=== PATIENT | female | born 2000 | race Caucasian/White ===

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

== ENCOUNTER 2019-07-25 07:59 | Emergency (ER) | payer BC, OTHER ==
[2019-07-25] MEDS ORDERED: Ketorolac 30 MG/ML SDV IVPUSH ONE (08:50)
[2019-07-25] MEDS ORDERED: Sodium Chloride 0.9% 1,000 ML IV ONE (08:50)
--- NOTE | 2019-07-25 08:57 | EDM.PDOC ---
ED HPI GENERAL MEDICAL PROBLEM - General Stated Complaint: ABD PAIN Time Seen by Provider: 07/25/19 08:30 Source of Information: Reports: Patient History Limitations: Reports: No Limitations - History of Present Illness INITIAL COMMENTS - FREE TEXT/NARRATIVE: patient is a pleasant 18-year-old female who presents this morning with concern for severe right-sided abdominal pain that started in her lower abdomen. She states it refers up to her upper abdomen and also she can feel it a little bit in her back. She had one episode similar prior but it was not nearly this severe. She has mild nausea, but no vomiting, and no fever. She does not have any urinary symptoms such as increased frequency or urgency. she did not take anything at home for the pain. She describes it as constant, with spasms that cause her to become worse. Last menstrual period just started this morning, she just stopped her control 2 days ago due to concern over moods. She has a history of protein C deficiency. She also has a history of chronic constipation, and there is an extensive family history of early cholelithiasis and also more distant family history of renal stones. She herself has never had either of these issues. R abdominal pain Pain Score (Numeric/FACES): 7 - Related Data Allergies Allergy/AdvReac Type Severity Reaction Status Date / Time No Known Allergies Allergy Verified 07/25/19 08:31 Home Meds: Home Meds Ibuprofen 600 mg PO Q8HR PRN 07/22/17 [History] Doxycycline [Vibramycin] 100 mg PO BID 14 Days #28 cap 07/25/19 [Rx] Past Medical History HEENT History: Reports: Allergic Rhinitis Gastrointestinal History: Reports: Chronic Constipation Psychiatric History: Reports: Anxiety Hematologic History: Reports: Other (See Below) Other Hematologic History: protein c deficiency - Past Surgical History HEENT Surgical History: Reports: Oral Surgery, Tonsillectomy Musculoskeletal Surgical History: Reports: Arthroscopic Knee, Shoulder Surgery Social & Family History - Family History GI: Reports: Cholelithiasis : Reports: Renal Calculus - Tobacco Use Smoking Status *Q: Current Every Day Smoker Tobacco Use Within Last Twelve Months: Vaping - Living Situation & Occupation Living situation: Reports: with Family Occupation: Student ED ROS GENERAL - Review of Systems Review Of Systems: ROS reveals no pertinent complaints other than HPI. ED EXAM, GENERAL - Physical Exam Exam: See Below Free Text/Narrative:: Gen.: Alert, smiling and laughing with family when I first enter the room. Head is atraumatic, pupils and equal and reactive, neck is supple and there is no cervical lymphadenopathy. Throat is without erythema and mucous members are moist. Lungs are clear throughout with no wheezes or crackles, heart is regular rate and rhythm. There is no costovertebral tenderness on either side. Peripheral pulses are +2 in the upper and lower extremities and she has no lower extremity edema. Skin is without lesions or rashes. She has equal strength [id number]. Abdominal exam shows normal bowel sounds, diffusely tender. No rebound or guarding. pelvic exam shows copious green vaginal discharge around the cervix and in the vaginal vault. No blood or clots. On bimanual exam she has cervical motion tenderness and some left-sided adnexal tenderness, but not on the right side. Course - Vital Signs Text/Narrative:: labs ordered. Vitals stable, will give toradol and IVF. Broad differential. Last Recorded V/S: Last Vital Signs Temp 36.7 C 07/25/19 12:15 Pulse 82 07/25/19 12:15 Resp 18 07/25/19 12:15 BP 122/70 07/25/19 12:15 Pulse Ox 100 07/25/19 12:15 - Orders/Labs/Meds Orders: Active Orders 24 hr Category Date Time Status CHLAMYDIA/GC AMPLIFICATION Routine Lab 07/25/19 11:00 Received CULTURE URINE [RM] Stat Lab 07/25/19 09:57 Received Phenazopyridine [Urinary Pain Relief] Med 07/25/19 09:00 Active 95 mg PO TIDPC cefTRIAXone [Rocephin] Med 07/25/19 11:30 Active 1 gm IVPUSH Q24H Medication Orders Ceftriaxone Sodium (Rocephin) 1 gm IVPUSH Q24H [facility] Last Admin: 07/25/19 11:31 Dose: 1 gm Phenazopyridine HCl (Urinary Pain Relief) 95 mg PO TIDPC [facility] Last Admin: 07/25/19 09:39 Dose: 95 mg Labs: Laboratory Tests 07/25/19 07/25/19 07/25/19 Range/Units 08:14 08:14 08:30 WBC 9.8 (4.5-12.0) X10-3/uL RBC 5.25 H (3.23-5.20) x10(6)uL Hgb 13.1 (11.5-15.5) g/dL Hct 41.4 (30.0-51.3) % MCV 78.8 L (80-96) fL MCH 24.9 L (27.7-33.6) pg MCHC 31.6 L (32.2-35.4) g/dL RDW 13.8 (11.5-15.5) % Plt Count 328 (125-369) X10(3)uL MPV 8.8 (7.4-10.4) fL Neut % (Auto) 70.4 (46-82) % Lymph % (Auto) 19.6 (13-37) % [place] % (Auto) 6.2 (4-12) % Eos % (Auto) 3 (1.0-5.0) % Baso % (Auto) 1 (0-2) % Neut # (Auto) 6.9 (1.6-8.3) # Lymph # (Auto) 1.9 (0.6-5.0) # [place] # (Auto) 0.6 (0.0-1.3) # Eos # (Auto) 0.3 (0.0-0.8) # Baso # (Auto) 0.1 (0.0-0.2) # Sodium (135-145) mmol/L Potassium (3.5-5.3) mmol/L Chloride (100-110) mmol/L Carbon Dioxide (21-32) mmol/L BUN (7-18) mg/dL Creatinine (0.55-1.02) mg/dL Est Cr Clr Drug Dosing mL/min Estimated GFR (MDRD) (>60) BUN/Creatinine Ratio (9-20) Glucose (80-116) mg/dL Calcium (8.2-10.1) mg/dL Total Bilirubin (0.1-1.2) mg/dL AST (5-25) IU/L ALT (12-36) U/L Alkaline Phosphatase (56-112) IU/L C-Reactive Protein (0.5-0.9) mg/dL Total Protein (6.0-8.0) g/dL Albumin (3.2-4.5) g/dL Globulin g/dL Albumin/Globulin Ratio Amylase (25-115) U/L Urine Color Yellow (YELLOW) Urine Appearance Slightly cloudy (CLEAR) Urine pH 5.0 (5.0-6.5) Ur Specific [place] 1.020 (1.010-1.025) Urine Protein Negative (NEGATIVE) mg/dL Urine Glucose (UA) Normal (NORMAL) mg/dL Urine Ketones Negative (NEGATIVE) mg/dL Urine Occult Blood Large H (NEGATIVE) Urine Nitrite Negative (NEGATIVE) Urine Bilirubin Negative (NEGATIVE) Urine Urobilinogen Normal (NEGATIVE) mg/dL Ur Leukocyte Esterase Moderate H (NEGATIVE) Urine RBC 10-20 H (0-5) Urine WBC 5-10 H (0-5) Ur Squamous Epith Cells Moderate H (NS,R,O) Ur Renal Epithelial Cell Few H (NS) Urine Bacteria Many H (NS) Hyaline Casts Few H (NS) Urine Mucus Few H (NS) Urine HCG, Qual Negative (NEGATIVE) 07/25/19 07/25/19 Range/Units 08:30 08:30 WBC (4.5-12.0) X10-3/uL RBC (3.23-5.20) x10(6)uL Hgb (11.5-15.5) g/dL Hct (30.0-51.3) % MCV (80-96) fL MCH (27.7-33.6) pg MCHC (32.2-35.4) g/dL RDW (11.5-15.5) % Plt Count (125-369) X10(3)uL MPV (7.4-10.4) fL Neut % (Auto) (46-82) % Lymph % (Auto) (13-37) % [place] % (Auto) (4-12) % Eos % (Auto) (1.0-5.0) % Baso % (Auto) (0-2) % Neut # (Auto) (1.6-8.3) # Lymph # (Auto) (0.6-5.0) # [place] # (Auto) (0.0-1.3) # Eos # (Auto) (0.0-0.8) # Baso # (Auto) (0.0-0.2) # Sodium 140 (135-145) mmol/L Potassium 4.3 (3.5-5.3) mmol/L Chloride 105 (100-110) mmol/L Carbon Dioxide 26 (21-32) mmol/L BUN 10 (7-18) mg/dL Creatinine 0.7 (0.55-1.02) mg/dL Est Cr Clr Drug Dosing 92.85 mL/min Estimated GFR (MDRD) > 60 (>60) BUN/Creatinine Ratio 14.3 (9-20) Glucose 94 (80-116) mg/dL Calcium 9.0 (8.2-10.1) mg/dL Total Bilirubin 0.3 (0.1-1.2) mg/dL AST 16 (5-25) IU/L ALT 18 (12-36) U/L Alkaline Phosphatase 72 (56-112) IU/L C-Reactive Protein < 0.2 L (0.5-0.9) mg/dL Total Protein 7.8 (6.0-8.0) g/dL Albumin 3.7 (3.2-4.5) g/dL Globulin 4.1 g/dL Albumin/Globulin Ratio 0.9 Amylase 40 (25-115) U/L Urine Color (YELLOW) Urine Appearance (CLEAR) Urine pH (5.0-6.5) Ur Specific [place] (1.010-1.025) Urine Protein (NEGATIVE) mg/dL Urine Glucose (UA) (NORMAL) mg/dL Urine Ketones (NEGATIVE) mg/dL Urine Occult Blood (NEGATIVE) Urine Nitrite (NEGATIVE) Urine Bilirubin (NEGATIVE) Urine Urobilinogen (NEGATIVE) mg/dL Ur Leukocyte Esterase (NEGATIVE) Urine RBC (0-5) Urine WBC (0-5) Ur Squamous Epith Cells (NS,R,O) Ur Renal Epithelial Cell (NS) Urine Bacteria (NS) Hyaline Casts (NS) Urine Mucus (NS) Urine HCG, Qual (NEGATIVE) Meds: Medications Generic Name Dose Route Start Last Admin Trade Name Freq PRN Reason Stop Dose Admin Ceftriaxone Sodium 1 gm 07/25/19 11:30 07/25/19 11:31 Rocephin IVPUSH 1 gm Q24H ALEAH Administration Phenazopyridine HCl 95 mg 07/25/19 09:00 07/25/19 09:39 Urinary Pain Relief PO 95 mg TIDPC ALEAH Administration Discontinued Medications Generic Name Dose Route Start Last Admin Trade Name Freq PRN Reason Stop Dose Admin Azithromycin 1,000 mg 07/25/19 11:45 09/18/19 11:36 Zithromax PO 07/25/19 11:46 1,000 mg ONETIME ONE Administration Sodium Chloride 1,000 mls @ 999 mls/hr 07/25/19 08:50 07/25/19 09:31 Normal Saline IV 07/25/19 09:50 999 mls/hr .BOLUS ONE Administration Ketorolac Tromethamine 30 mg 07/25/19 08:50 07/25/19 09:31 Toradol IVPUSH 07/25/19 08:51 30 mg ONETIME ONE Administration - Re-Assessments/Exams Free Text/Narrative Re-Assessment/Exam: 07/25/19 13:36 CT obtained with renal stone protocol, no abnormality seen but significant free fluid noted in the pelvis. On pelvic exam, copious discharge noted, concerning for pelvic inflammatory disease. She has had negative STD testing 3 this year and no new partner. Discussed giving dose of Rocephin here, also dose of azithromycin to cover for chlamydia and then antibiotics for outpatient treatment of PID given her nontoxic appearance, lack of fever and labs. Discussed follow-up with in clinic within the next 1-2 days. They were in agreement with this plan and all questions were answered Departure - Departure Time of Disposition: 12:12 Disposition: Home, Self-Care 01 Condition: Fair Clinical Impression: Pelvic inflammatory disease - Discharge Information *PRESCRIPTION DRUG MONITORING PROGRAM REVIEWED*: Not Applicable *COPY OF PRESCRIPTION DRUG MONITORING REPORT IN PATIENT JESUS: Not Applicable Prescriptions: Doxycycline [Vibramycin] 100 mg PO BID 14 Days #28 cap Instructions: Pelvic Inflammatory Disease Referrals: Yosi Robert MD [ED Physician] - Forms: ED Return to Work/School Form Additional Instructions: May take ibuprofen 600 mg up to 3 times per day for pain and discomfort Given dose of antibiotics here, and should start prescription tonight If fever greater than 100.7 should be reevaluated by a physician Recommend follow-up on Tuesday in clinic to reevaluate and make sure improving before the weekend - My Orders Last 24 Hours: My Active Orders 07/25/19 09:00 Phenazopyridine [Urinary Pain Relief] 95 mg PO TIDPC 07/25/19 09:57 CULTURE URINE [RM] Stat 07/25/19 11:00 CHLAMYDIA/GC AMPLIFICATION Routine 07/25/19 11:30 cefTRIAXone [Rocephin] 1 gm IVPUSH Q24H - Assessment/Plan Last 24 Hours: My Active Orders 07/25/19 09:00 Phenazopyridine [Urinary Pain Relief] 95 mg PO TIDPC 07/25/19 09:57 CULTURE URINE [RM] Stat 07/25/19 11:00 CHLAMYDIA/GC AMPLIFICATION Routine 07/25/19 11:30 cefTRIAXone [Rocephin] 1 gm IVPUSH Q24H
[2019-07-25] MEDS ORDERED: Phenazopyridine 95 MG Tab PO SCH (09:00)
[2019-07-25] MEDS ORDERED: Azithromycin 250 MG Tab PO ONE (11:22)
[2019-07-25] MEDS ORDERED: cefTRIAXone 1 GM Vial IVPUSH SCH (11:30)
--- NOTE | 2019-07-25 11:31 | CT ---
INDICATION: Right-sided pain, question renal calculus. CT ABDOMEN AND PELVIS WITHOUT CONTRAST: Spiral 2.5 mm axial sections were obtained through the abdomen and pelvis with renal calculus protocol, including sagittal and coronal reconstructions and no contrast, 07/25/19, and compared with 07/22/17. Total exam DLP = 481.63 mGy-cm. There is no evidence of renal calcinosis or obstructive uropathy. Urinary bladder appeared grossly normal, allowing for poor distention. There may be some thickening of the wall, however, which could be on the basis of cystitis and should be correlated clinically. The uterus was grossly normal with a large amount of free fluid suggested in the pelvis. This could be on the basis of physiologic cyst rupture but should be correlated clinically, as other etiologies such as pelvic inflammatory disease cannot be excluded. What appears to be the appendix appeared to be 8.5 mm and most likely not inflamed. It is not well seen, however, due to lack of IV contrast. No retroperitoneal mass was seen. Upper abdominal organs were unremarkable, including the liver, gallbladder, adrenals, kidneys, spleen, and pancreas, as visualized without IV contrast. The visualized lower lung [place] and pleural spaces were unremarkable. The heart did not appear enlarged. No pericardial effusion was seen. Some minimal metallic density in the stomach may represent medication - correlate clinically. IMPRESSION: 1. No evidence of obstructive uropathy or renal calcinosis. 2. Fairly large amount of free fluid in the pelvic cavity. This ascites could be on the basis of a large recently ruptured physiologic cyst but should be correlated clinically, as other etiology cannot be excluded. 3. There may be some thickening of the urinary bladder wall, raising question of cystitis but this should be correlated clinically. Report was called to Dr. Villasenor at 1043 hours on 07/25/19. [facility]
[2019-07-25] MEDS ORDERED: Azithromycin 500 MG Tab PO ONE (11:45)
[2019-07-25 13:06] VITALS: BP 122/70; PULSE 82
[2019-07-28 11:08] LABS: CHLAMYDIA TRACHOMATIS, NAA Positive (Negative); NEISSERIA GONORRHOEAE, NAA Negative (Negative)
== END 2019-07-25 12:35 | disposition home or self-care (01) ==
LOC: FB.ED 07:59
DX: N73.9 Female pelvic inflammatory disease, unspecified (principal); Z98.890 Other specified postprocedural states; F17.290 Nicotine dependence, other tobacco product, uncomplicated
CPT/HCPCS: 36415; 74176; 80053; 81001; 81025; 82150; 85025; 86140; 87086; 87491; 87591; 96361; 96374; 96375; 99284; A9270; J0696; J1885; J7030

== ENCOUNTER 2019-07-31 22:11 | Emergency (ER) | payer OTHER ==
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
[2019-08-01 05:51] VITALS: BP 116/72; PULSE 84
== END 2019-08-01 01:10 | disposition home or self-care (01) ==
LOC: FB.ED 22:11
DX: S13.4XXA Sprain of ligaments of cervical spine, initial encounter (principal); Z98.890 Other specified postprocedural states; X50.9XXA Other and unspecified overexertion or strenuous movements or postures, initial encounter
CPT/HCPCS: 70450; 72125; 81025; 99284-25

== ENCOUNTER 2022-03-10 22:00 | Emergency (ER) | payer BC, OTHER ==
[2022-03-10] MEDS ORDERED: traMADol 50 MG Tab PO ONE (22:01)
[2022-03-10 22:06] VITALS: BP 137/99; PULSE 109
== END 2022-03-10 22:50 | disposition home or self-care (01) ==
LOC: FB.ED 22:00
DX: S99.911A Unspecified injury of right ankle, initial encounter (principal); W18.30XA Fall on same level, unspecified, initial encounter
CPT/HCPCS: 73610; 99283; A9270